=== PATIENT | male | born 1955 | race Caucasian/White ===

== ENCOUNTER 2017-12-30 21:15 | Emergency (ER) | payer BC, OTHER ==
[2017-12-30 21:42] VITALS: O2SAT 98
--- NOTE | 2017-12-30 22:12 | ERPHSYRPT ---
- History of Present Illness Time Seen by Provider: 12/30/17 21:59 Source: patient, other (son) Exam Limitations: other (altered mental status) Patient Subjective Stated Complaint: weakness, confusion, vomiting, diarhea, altered mental status, fallen 12 times in past week, stated that symptoms started 16 weeks ago and has accelerated this past week Triage Nursing Assessment: Pt A&O x3, BP 151/91, pulses normal, bowel sounds heard in all 4 quadrants, no difficulty with strength, pupils sluggish, complains of weakness, vomiting, diarhea, and altered mental status, hx of many sinus infections, hx of head trauma, lack of appetite for over a week and declining Physician History: Pt recently moved to his son from [place]. He has been treated with frequent sinus infections, underwent surgery in the past, and has been through multiple outpatient antibiotic treatments recently. He has been getting weaker over the past one week, has difficulty walking, falling frequently, without serous injury, coughing up phlegm, and vomiting frequently. He denies chest pain , SOB, fever, other complaints. Timing/Duration: week(s) (1) Severity: moderate Modifying Factors: Improves With: nothing Associated Symptoms: nausea, vomiting, cough, loss of appetite Allergies/Adverse Reactions: codeine Allergy (Severe, Verified 12/30/17 21:42) breathing diff Home Medications: No Home Meds [No Home Meds] 1 scotty UD 12/12/13 [History] Hx Influenza Vaccination/Date Given: No Hx Pneumococcal Vaccination/Date Given: No - Review of Systems Constitutional: Weakness Respiratory: Cough All Other Systems: Unable due to condition - Past Medical History Pertinent Past Medical History: Yes Neurological History: Paralysis ENT History: Cataracts Cardiac History: No Pertinent History Respiratory History: Bronchitis, Pneumonia Endocrine Medical History: No Pertinent History Musculoskeletal History: Arthritis, Degenerative Disk Disease, Fractures GI Medical History: No Pertinent History, Polyps History: No Pertinent History Psycho-Social History: No Pertinent History Male Reproductive Disorders: Prostate Problems Other Medical History: lt shoulder fatty tumor,hepatitis when younger - Past Surgical History Past Surgical History: Yes Neuro Surgical History: No Pertinent History Cardiac: No Pertinent History Respiratory: No Pertinent History Gastrointestinal: No Pertinent History Genitourinary: No Pertinent History Musculoskeletal: Joint Replacement, Orthopedic Surgery Male Surgical History: No Pertinent History Other Surgical History: lt knee inj, rt foot,rt hip replacement,tonsils,nasal, rt knee,inj in back times 2 one inj in rt shoulder - Social History Smoking Status: Current every day smoker How long have you smoked: 50 years Exposure to second hand smoke: Yes Drug Use: none Patient Lives Alone: No - Nursing Vital Signs Nursing Vital Signs: Initial Vital Signs Temperature 98.0 F 12/30/17 21:23 Pulse Rate 72 12/30/17 21:23 Blood Pressure 151/91 12/30/17 21:23 O2 Sat by Pulse Oximetry 98 12/30/17 21:23 Pain Scale Pain Intensity 0 - Physical Exam General Appearance: no apparent distress Eye Exam: PERRL/EOMI, eyes nml inspection Ears, Nose, Throat Exam: normal ENT inspection, TMs normal, pharynx normal, moist mucous membranes Neck Exam: normal inspection, non-tender, supple, No mass, No carotid bruit, No JVD Respiratory Exam: normal breath sounds, lungs clear, airway intact, No chest tenderness, No respiratory distress Cardiovascular Exam: regular rate/rhythm, normal heart sounds, normal peripheral pulses, No murmur Gastrointestinal/Abdomen Exam: soft, normal bowel sounds, No tenderness, No distention, No mass, No guarding, No pulsatile mass, No rebound Back Exam: normal inspection, No CVA tenderness Extremity Exam: normal inspection, No calf tenderness, No pedal edema Neurologic Exam: alert, oriented x 3, cooperative, normal mood/affect, No motor deficits Skin Exam: normal color, warm, dry, No rash Lymphatic Exam: No adenopathy SpO2 Interpretation: normal SpO2: 98 Oxygen Delivery: Room Air - Course Nursing assessment & vital signs reviewed: Yes EKG Interpreted by Me: RATE (54/min), Sinus Dustin, NORMAL AXIS, Non-specific ST Changes - Radiology Exams Chest X-ray Interpretation: Interpreted by me, Negative - CT Exams Abdomen/Pelvis CT Interpretation: Negative, Tele-radiologist Report, Other (left adrenal nodule , 5 mm RLL nodule) Head CT Interpretation: Tele-radiologist Report, Other (2.6 cm hyperdense cerebellar mass with surrounding vasogenic edema and mass effect to the fourth ventricle resulting in acute hydrocephalus with transependymal CSF flow.) Ordered Tests: Active Orders 24 hr Category Date Time Status EKG-ER Only STAT Care 12/30/17 22:04 Active IV Insertion STAT Care 12/30/17 22:04 Active ABDOMEN AND PELVIS W/0 CONTRAS [CT] Stat Exams 12/30/17 23:10 Taken CHEST 1 VIEW (PORTABLE) Stat Exams 12/31/17 01:27 Taken HEAD WITHOUT CONTRAST [CT] Stat Exams 12/30/17 22:05 Taken CBC W DIFF Stat Lab 12/30/17 22:30 Completed CK-Creatinine Phosphokinase Stat Lab 12/30/17 22:30 Completed CMP Stat Lab 12/30/17 22:30 Completed CULTURE,URINE Stat Lab 12/30/17 23:35 Received ETHYL ALCOHOL Stat Lab 12/30/17 22:30 Completed LIPASE Stat Lab 12/30/17 22:30 Completed Lactic Acid Stat Lab 12/30/17 22:25 Completed MAGNESIUM Stat Lab 12/30/17 22:30 Completed PROTIME WITH INR Stat Lab 12/30/17 22:30 Completed TROPONIN Q3H Lab 12/30/17 22:30 Completed TROPONIN Q3H Lab 12/31/17 01:40 Completed TROPONIN Q3H Lab 12/31/17 04:15 Ordered TROPONIN Q3H Lab 12/31/17 07:15 Ordered TROPONIN Q3H Lab 12/31/17 10:15 Ordered UA W/ MICROSCOPIC Stat Lab 12/30/17 23:35 Completed Medication Summary Generic Name Dose Route Start Last Admin Trade Name Freq PRN Reason Stop Dose Admin Sodium Chloride 1,000 mls @ 100 mls/hr 12/30/17 22:15 12/30/17 22:43 Sodium Chloride 0.9% 1000 Ml IV 01/29/18 22:14 100 mls/hr .Q10H YOLANDA Administration Discontinued Medications Generic Name Dose Route Start Last Admin Trade Name Freq PRN Reason Stop Dose Admin Potassium Chloride 20 meq in 100 mls @ 50 mls/hr 12/30/17 23:07 12/30/17 23: 10 Potassium Chloride 20 Meq In Water 100ml IV 12/31/17 01:06 50 mls/hr STAT ONE Administration Potassium Chloride Confirm 12/30/17 23:08 Potassium Chloride 20 Meq In Water 100ml Administered 12/30/17 23:09 Dose 100 mls @ ud IV .STK-MED ONE Lab/Rad Data: Laboratory Result Diagrams 12/30/17 22:30 12/30/17 22:30 Laboratory Results 06/23/18 06/22/18 06/22/18 Range/Units 01:40 23:35 22:30 WBC (4.0-10.5) K/mm3 RBC (4.1-5.6) M/mm3 Hgb (12.5-18.0) gm/dl Hct (42-50) % MCV (78-100) fl MCH (26-32) pg MCHC (32-36) g/dl RDW (11.5-14.0) % Plt Count (150-450) K/mm3 MPV (6-9.5) fl Gran % (36.0-66.0) % Eos # (Auto) (0-0.5) Absolute Lymphs (auto) (1.0-4.6) Absolute Monos (auto) (0.0-1.3) Lymphocytes % (24.0-44.0) % Monocytes % (0.0-12.0) % Eosinophils % (0.00-5.0) % Basophils % (0.0-0.4) % Absolute Granulocytes (1.4-6.9) Basophils # (0-0.4) PT (8.83-12.87) SECONDS INR (0.8-3.0) Sodium (137-145) mmol/L Potassium (3.5-5.1) mmol/L Chloride (98-107) mmol/L Carbon Dioxide (22-30) mmol/L Anion Gap (5-15) MEQ/L BUN (9-20) mg/dL Creatinine (0.66-1.25) mg/dL Estimated GFR ML/MIN Glucose (74-106) mg/dL Lactic Acid (0.4-2.0) Calcium (8.4-10.2) mg/dL Magnesium (1.6-2.3) mg/dL Total Bilirubin (0.2-1.3) mg/dL AST (17-59) U/L ALT (0-50) U/L Alkaline Phosphatase (38-126) U/L Creatine Kinase (55-170) U/L Troponin I < 0.012 < 0.012 (0.000-0.034) ng/mL Serum Total Protein (6.3-8.2) g/dL Albumin (3.5-5.0) g/dL Lipase (23-300) U/L Ur Collection Type VOID Urine Color DARK YELLOW (YELLOW) Urine Appearance CLEAR (CLEAR) Urine pH 5.0 (5-6) Ur Specific [place] 1.025 (1.005-1.025) Urine Protein TRACE (Negative) Urine Ketones SMALL (NEGATIVE) Urine Blood 50 (0-5) Karel/ul Urine Nitrite NEGATIVE (NEGATIVE) Urine Bilirubin NEGATIVE (NEGATIVE) Urine Urobilinogen NORMAL (0-1) mg/dL Ur Leukocyte Esterase NEGATIVE (NEGATIVE) Urine Microscopic RBC 10-15 (0-2) /HPF Urine Microscopic WBC 0-2 (0-5) /HPF Ur Epithelial Cells RARE (FEW) /HPF Urine Bacteria RARE (NEGATIVE) /HPF Urine Culture Reflexed YES (NO) Urine Glucose NEGATIVE (NEGATIVE) mg/dL Ethyl Alcohol (0-10) mg/dL Specimen Received 12/300 12/30/17 12/30/17 12/30/17 Range/Units 22:30 22:30 22:30 WBC (4.0-10.5) K/mm3 RBC (4.1-5.6) M/mm3 Hgb (12.5-18.0) gm/dl Hct (42-50) % MCV (78-100) fl MCH (26-32) pg MCHC (32-36) g/dl RDW (11.5-14.0) % Plt Count (150-450) K/mm3 MPV (6-9.5) fl Gran % (36.0-66.0) % Eos # (Auto) (0-0.5) Absolute Lymphs (auto) (1.0-4.6) Absolute Monos (auto) (0.0-1.3) Lymphocytes % (24.0-44.0) % Monocytes % (0.0-12.0) % Eosinophils % (0.00-5.0) % Basophils % (0.0-0.4) % Absolute Granulocytes (1.4-6.9) Basophils # (0-0.4) PT 13.8 H (8.83-12.87) SECONDS INR 1.18 (0.8-3.0) Sodium 139 (137-145) mmol/L Potassium 2.8 L* (3.5-5.1) mmol/L Chloride 101 (98-107) mmol/L Carbon Dioxide 25 (22-30) mmol/L Anion Gap 15.8 H (5-15) MEQ/L BUN 13 (9-20) mg/dL Creatinine 0.84 (0.66-1.25) mg/dL Estimated GFR > 60.0 ML/MIN Glucose 129 H (74-106) mg/dL Lactic Acid (0.4-2.0) Calcium 9.4 (8.4-10.2) mg/dL Magnesium 2.2 (1.6-2.3) mg/dL Total Bilirubin 0.70 (0.2-1.3) mg/dL AST 21 (17-59) U/L ALT 41 (0-50) U/L Alkaline Phosphatase 84 (38-126) U/L Creatine Kinase 37 L (55-170) U/L Troponin I (0.000-0.034) ng/mL Serum Total Protein 7.2 (6.3-8.2) g/dL Albumin 4.0 (3.5-5.0) g/dL Lipase 26 (23-300) U/L Ur Collection Type Urine Color (YELLOW) Urine Appearance (CLEAR) Urine pH (5-6) Ur Specific [place] (1.005-1.025) Urine Protein (Negative) Urine Ketones (NEGATIVE) Urine Blood (0-5) Karel/ul Urine Nitrite (NEGATIVE) Urine Bilirubin (NEGATIVE) Urine Urobilinogen (0-1) mg/dL Ur Leukocyte Esterase (NEGATIVE) Urine Microscopic RBC (0-2) /HPF Urine Microscopic WBC (0-5) /HPF Ur Epithelial Cells (FEW) /HPF Urine Bacteria (NEGATIVE) /HPF Urine Culture Reflexed (NO) Urine Glucose (NEGATIVE) mg/dL Ethyl Alcohol < 10 (0-10) mg/dL Specimen Received 12/30/17 12/30/17 Range/Units 22:30 22:25 WBC 8.7 (4.0-10.5) K/mm3 RBC 5.22 (4.1-5.6) M/mm3 Hgb 16.3 (12.5-18.0) gm/dl Hct 45.8 (42-50) % MCV 87.7 (78-100) fl MCH 31.2 (26-32) pg MCHC 35.6 (32-36) g/dl RDW 12.6 (11.5-14.0) % Plt Count 269 (150-450) K/mm3 MPV 9.9 H (6-9.5) fl Gran % 65.9 (36.0-66.0) % Eos # (Auto) 0.29 (0-0.5) Absolute Lymphs (auto) 1.73 (1.0-4.6) Absolute Monos (auto) 0.90 (0.0-1.3) Lymphocytes % 19.9 L (24.0-44.0) % Monocytes % 10.4 (0.0-12.0) % Eosinophils % 3.3 (0.00-5.0) % Basophils % 0.5 (0.0-0.4) % Absolute Granulocytes 5.73 (1.4-6.9) Basophils # 0.04 (0-0.4) PT (8.83-12.87) SECONDS INR (0.8-3.0) Sodium (137-145) mmol/L Potassium (3.5-5.1) mmol/L Chloride (98-107) mmol/L Carbon Dioxide (22-30) mmol/L Anion Gap (5-15) MEQ/L BUN (9-20) mg/dL Creatinine (0.66-1.25) mg/dL Estimated GFR ML/MIN Glucose (74-106) mg/dL Lactic Acid 1.2 (0.4-2.0) Calcium (8.4-10.2) mg/dL Magnesium (1.6-2.3) mg/dL Total Bilirubin (0.2-1.3) mg/dL AST (17-59) U/L ALT (0-50) U/L Alkaline Phosphatase (38-126) U/L Creatine Kinase (55-170) U/L Troponin I (0.000-0.034) ng/mL Serum Total Protein (6.3-8.2) g/dL Albumin (3.5-5.0) g/dL Lipase (23-300) U/L Ur Collection Type Urine Color (YELLOW) Urine Appearance (CLEAR) Urine pH (5-6) Ur Specific [place] (1.005-1.025) Urine Protein (Negative) Urine Ketones (NEGATIVE) Urine Blood (0-5) Karel/ul Urine Nitrite (NEGATIVE) Urine Bilirubin (NEGATIVE) Urine Urobilinogen (0-1) mg/dL Ur Leukocyte Esterase (NEGATIVE) Urine Microscopic RBC (0-2) /HPF Urine Microscopic WBC (0-5) /HPF Ur Epithelial Cells (FEW) /HPF Urine Bacteria (NEGATIVE) /HPF Urine Culture Reflexed (NO) Urine Glucose (NEGATIVE) mg/dL Ethyl Alcohol (0-10) mg/dL Specimen Received - Progress Progress: unchanged Progress Note: 12/31/17 03:54 Radiologist, Dr Waggoner called, discussed CT head findings, I called Dr Cota Neurosurgeon and Dr Diaz ED physician in [facility] , discussed the CT findings, and this patient's current condition, they agreed to transfer him to their ED immediately for further evaluation and treatment. I informed patient and his son, the agreed to the transfer, understood all risks and benefits involved, he is stable for the transfer. Discussed with Dr.: Other (Cipriano and Emily) Counseled pt/family regarding: lab results, diagnosis, rad results - Departure Time of Disposition: 03:57 Departure Disposition: Transfer ([facility] ED in [place]) Clinical Impression: Cerebellar mass, Hydrocephalus, Hypokalemia Condition: Stable Critical Care Time: No
[2017-12-30] MEDS ORDERED: Sodium Chloride 0.9% 1000 ML 1,000 ML IV SCH (22:15)
[2017-12-30] MEDS ORDERED: Sodium Chloride 0.9% 1000 ML 1,000 ML ONE (22:36)
[2017-12-30 22:39] LABS: BASOPHIL % 0.5 % (0.0-0.4); Basophil (Absolute #) 0.04 (0-0.4); Eosinophil % 3.3 % (0.00-5.0); Eosinophil (Absolute #) 0.29 (0-0.5); Granulocyte Absolute (ANC) 5.73 (1.4-6.9); Granulocytes % 65.9 % (36.0-66.0); Hematocrit 45.8 % (42-50); Hemoglobin 16.3 gm/dl (12.5-18.0); Lymphocyte (Absolute #) 1.73 (1.0-4.6); Lymphocytes % 19.9 % (24.0-44.0); Mean Cell Volume 87.7 fl (78-100); Mean Corpuscular Hemoglobin 31.2 pg (26-32); Mean Corpuscular Hgb Concent. 35.6 g/dl (32-36); Mean Platelet Volume 9.9 fl (6-9.5); Monocytes % 10.4 % (0.0-12.0); Platelet Count 269 K/mm3 (150-450); Red Blood Count 5.22 M/mm3 (4.1-5.6); Red Cell Distribution Width 12.6 % (11.5-14.0); White Blood Count 8.7 K/mm3 (4.0-10.5)
[2017-12-30 22:56] LABS: INR 1.18 (0.8-3.0)
[2017-12-30 23:02] LABS: CK-Creatinine Phosphokinase 37 U/L (55-170); LIPASE 26 U/L (23-300)
[2017-12-30 23:03] LABS: ALKALINE PHOSPHATASE 84 U/L (38-126); ANION GAP 15.8 MEQ/L (5-15); BLOOD UREA NITROGEN 13 mg/dL (9-20); CHLORIDE 101 mmol/L (98-107); Calcium 9.4 mg/dL (8.4-10.2); Carbon Dioxide 25 mmol/L (22-30); Creatinine 1 0.84 mg/dL (0.66-1.25); ETHYL ALCOHOL < 10 mg/dL (0-10); Glucose 129 mg/dL (74-106); SGOT/AST 21 U/L (17-59); SGPT/ALT 41 U/L (0-50); SODIUM 139 mmol/L (137-145); Total Protein 7.2 g/dL (6.3-8.2)
[2017-12-30 23:07] LABS: Potassium 2.8 mmol/L (3.5-5.1)
[2017-12-30] MEDS ORDERED: POTASSIUM CHLORIDE 20 mEq IN WATER 100ML 20 MEQ/100 ML BAG IV ONE (23:07)
[2017-12-30] MEDS ORDERED: POTASSIUM CHLORIDE 20 mEq IN WATER 100ML 100 ML IV ONE (23:08)
[2017-12-31 00:05] LABS: Appearance CLEAR (CLEAR); Specific Gravity 1.025 (1.005-1.025)
[2017-12-31 00:06] LABS: Bilirubin NEGATIVE (NEGATIVE); Blood 50 Ery/ul (0-5); Glucose NEGATIVE (NEGATIVE); Ketones SMALL (NEGATIVE); Leukocyte Esterase NEGATIVE (NEGATIVE); Nitrite NEGATIVE (NEGATIVE); Protein,Urine Dip TRACE (Negative); Urobilinogen NORMAL mg/dL (0-1)
[2017-12-31 00:07] LABS: WBC 0-2 /HPF (0-5)
[2017-12-31 00:08] LABS: Bacteria RARE /HPF (NEGATIVE); Epithelial Cells RARE /HPF (FEW)
[2017-12-31 04:14] VITALS: BP 135/83; PULSE 63
--- NOTE | 2017-12-31 06:31 | XRAY ---
Indication: Weakness. Acute mental status change. Multiple contiguous axial images obtained through the head without contrast. Comparison: None Moderate sized bifrontal lobe encephalomalacia presumed from old injury/insult. There is a 2.6 x 1.5 x 2.2 cm midline cerebellar mass with surrounding vasogenic edema and mass effect effacing the fourth ventricle. Both lateral and third ventricles demonstrates mild/moderate hydrocephalus. Minimal bilateral periventricular degenerative micro-ischemia. No acute intracranial hemorrhage. Bony calvarium intact. Moderate mucoperiosteal thickening of both ethmoid sinuses and lesser degree right posterior maxillary sinus. Mastoid air cells are clear. Impression: 1. Midline cerebellar mass with mass effect on the fourth ventricle and subsequent hydrocephalus. 2. 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 3. Incidental paranasal sinus disease. Comment: Preliminary interpretation was made by [facility]. No discrepancy. CTDI 68.32
--- NOTE | 2017-12-31 06:34 | XRAY ---
Indication: Productive cough. Comparison: None Portable chest demonstrates subtle 2.8 cm right suprahilar masslike opacity better evaluated with CT chest. Lingular calcified granuloma. Remaining heart and lungs unremarkable. Bony thorax intact with minimal degenerative changes. Comment: Right suprahilar opacity that reported on preliminary interpretation by the ER clinician. Telephone report given to Dr. Luna in the ER at 0630 hrs. on December 31, 2017.
--- NOTE | 2017-12-31 06:40 | XRAY ---
Indication: Weakness. Acute mental status change. Multiple contiguous axial images obtained through the abdomen and pelvis without contrast as ordered. Comparison: None Lung bases demonstrates small lingular calcified granuloma. 5 mm subpleural noncalcified nodule seen in the posterior medial right lung base possibly granulomatous as well. No infiltrate or effusion. Heart is not enlarged. Small pericardial effusion. Right hip prosthesis produces beam artifact limiting these levels. Noncontrasted stomach and bowel loops appear nonobstructed. Normal appendix. Mild sigmoid diverticulosis without diverticulitis. No free fluid/air. 2.9 x 1.5 cm noncalcified left adrenal gland mass not adenoma based on Hounsfield units. Incidental fatty liver and cholecystectomy clips. Remaining liver, pancreas, spleen, right adrenal gland, kidneys, ureters, and bladder appear unremarkable for noncontrasted exam. Mild scattered aortoiliac calcifications without AAA. Osseous structures intact with mild/moderate degenerative changes throughout the spine. Impression: 1. Left adrenal gland mass not adenoma based on Hounsfield units. 2. Fatty liver and sigmoid diverticulosis. 3. No acute intra-abdominal/pelvic abnormalities on this noncontrasted exam. 4. Incidental 5 mm right lung base noncalcified nodule possibly granulomatous as there is a lingular calcified granuloma. Comparison studies would be of benefit if performed elsewhere. If not, consider CT chest to establish baseline with follow-up per Fleischner guidelines. Comment: Preliminary interpretation was made by [facility]. No critical discrepancy. CTDI 23.52
== END 2017-12-31 04:16 | disposition short-term general hospital (02) ==
LOC: ED 21:15
DX: G93.9 Disorder of brain, unspecified (principal); G91.9 Hydrocephalus, unspecified; E87.6 Hypokalemia; R53.1 Weakness; R26.2 Difficulty in walking, not elsewhere classified; R11.2 Nausea with vomiting, unspecified; R05 Cough
CPT/HCPCS: 36415; 70450; 71045; 74176; 80053; 80307; 81000; 81002; 82550; 83605; 83690; 83735; 84484; 85025; 85610; 87086; 93005; 96360; 96361; 96365; 99285; J3480; G0480